=== PATIENT | male | born 1985 | race Caucasian/White ===

== ENCOUNTER 2023-07-01 19:07 | Emergency (ER) | payer SELFPAY ==
[~2023-07-01] VITALS: Ht 177.8 cm; Wt 91.0 kg
[2023-07-01 19:27] VITALS: BP 172/68; PULSE 84; RESP 16; TEMP 98.7; O2SAT 99
[2023-07-01] MEDS ORDERED: NALO4SPR BOTHNSTRLS (19:52)
== END 2023-07-01 19:59 | disposition home or self-care (01) ==
LOC: ER 19:34
DX: T40.601A Poisoning by unspecified narcotics, accidental (unintentional), initial encounter (principal); X58.XXXA Exposure to other specified factors, initial encounter
CPT/HCPCS: 99283